=== PATIENT | male | born 1965 | race Hispanic/Latino ===

== ENCOUNTER 2017-11-29 10:18 | Emergency (ER) | payer BC ==
[2017-11-29 10:39] VITALS: BMI 26.4
[2017-11-29] MEDS ORDERED: DiphenhydrAMINE 50 mg/ml Inj IM STA (10:43)
--- NOTE | 2017-11-29 10:47 | ED PDOC ---
Arrival/HPI - General Chief Complaint: Allergic Reaction Time Seen by Provider: 11/29/17 10:43 Historian: Patient - History of Present Illness Narrative History of Present Illness (Text): 11/29/17 10:46 52yo male with no pmhx present with complaint of hives x 4days while at [facility]. States he was seen in ED at [facility] and was treated with Solu medrol and Benadryl. States he was discharged home with 7days worth of prednisone and Benadryl. States he started the Prednisone yesterday. He took the Benadryl last night. States he came to ED because he is still having some hives on his RLL and waist area. States the hives and lip swelling increased significantly. Denies tongue swelling, drooling, any new lotion/medication.food/detergent, any other inciting factors. Past Medical History - Provider Review Nursing Documentation Reviewed: Yes - Infectious Disease Hx of Infectious Diseases: None - Cardiac Hx Pacemaker: No - Pulmonary Hx Asthma: No - Neurological Hx Paralysis: No - HEENT Hx Difficulty Chewing: No - Hematological/Oncological Hx Blood Transfusions: No Hx Blood Transfusion Reaction: No - Musculoskeletal/Rheumatological Hx Musculoskeletal Disorders: No - Psychiatric Hx Emotional Abuse: No Hx Physical Abuse: No Hx Substance Use: No - Surgical History Hx Amputation: No - Anesthesia Hx Anesthesia: Yes Hx Anesthesia Reactions: No Hx Malignant Hyperthermia: No - Suicidal Assessment Feels Threatened In Home Enviroment: No Family/Social History - Physician Review Nursing Documentation Reviewed: Yes Family/Social History: Unknown Family HX Smoking Status: Never Smoked Hx Alcohol Use: Yes ([employer]) Hx Substance Use: No Allergies/Home Meds Allergies/Adverse Reactions: Allergies Penicillins Allergy (Verified 11/29/17 10:31) RASH iv contrast Allergy (Uncoded 11/29/17 10:31) RASH Home Medications: Home Meds Medication Instructions Recorded Confirmed DiphenhydrAMINE [Benadryl] 1 cap PO PRN PRN 11/29/17 11/29/17 Prednisone [Prednisone] 1 tab PO DAILY 11/29/17 11/29/17 Review of Systems - Physician Review All systems were reviewed & negative as marked: Yes - Review of Systems Constitutional: Normal Eyes: Normal ENT: Normal Respiratory: Normal Cardiovascular: Normal Gastrointestinal: Normal Genitourinary Male: Normal Musculoskeletal: Normal Skin: Rash, Pruritis Neurological: Normal Endocrine: Normal Hemo/Lymphatic: Normal Psychiatric: Normal Physical Exam Vital Signs Reviewed: Yes Temperature: Afebrile Blood Pressure: Normal Pulse: Regular Respiratory Rate: Normal Appearance: Positive for: Well-Appearing, Non-Toxic, Comfortable Pain Distress: None Mental Status: Positive for: Alert and Oriented X 3 - Systems Exam Head: Present: Atraumatic, Normocephalic Pupils: Present: PERRL Extroacular Muscles: Present: EOMI Conjunctiva: Present: Normal Mouth: Present: Moist Mucous Membranes, Normal Lips (Very mild right upper lip swelling) Neck: Present: Normal Range of Motion Respiratory/Chest: Present: Clear to Auscultation, Good Air Exchange. No: Respiratory Distress, Accessory Muscle Use Cardiovascular: Present: Regular Rate and Rhythm, Normal S1, S2. No: Murmurs Abdomen: No: Tenderness, Distention, Peritoneal Signs Back: Present: Normal Inspection Upper Extremity: Present: Normal Inspection. No: Cyanosis, Edema Lower Extremity: Present: Normal Inspection. No: Edema Neurological: Present: GCS=15, CN II-XII Intact, Speech Normal Skin: Present: Warm, Dry, Rashes (Hives to right lower leg), Normal Color Psychiatric: Present: Alert, Oriented x 3, Normal Insight, Normal Concentration Medical Decision Making ED Course and Treatment: 11/29/17 13:39 PT presented for stated history. He was not in any distress. He already took Prednisone and has been on prednisone for 2days. He was given Benadryl and Pepcid in ED. His rash improved in ED. Called Dr. Cook office and scheduled appointment for pt on 12/06 at 0500pm. Plan was DW the pt and he expressed understanding. - Medication Orders Current Medication Orders: Discontinued Medications Diphenhydramine HCl (Benadryl) 25 mg IM STAT STA Stop: 11/29/17 10:44 Last Admin: 11/29/17 10:58 Dose: 25 mg IM Administration Charges Document 11/29/17 10:58 CRISTAL (Rec: 11/29/17 10:58 CRISTAL [id number]) Injection Site MAR Injection Site Left Deltoid Charges for Administration # of IM Administrations 1 Famotidine (Pepcid) 20 mg PO STAT STA Stop: 11/29/17 10:44 Last Admin: 11/29/17 10:58 Dose: 20 mg Disposition/Present on Arrival - Present on Arrival Any Indicators Present on Arrival: No History of DVT/PE: No History of Uncontrolled Diabetes: No Urinary Catheter: No History of Decub. Ulcer: No History Surgical Site Infection Following: None - Disposition Have Diagnosis and Disposition been Completed?: Yes Diagnosis: Allergic reaction Disposition: HOME/ ROUTINE Disposition Time: 10:50 Patient Plan: Discharge Patient Problems: Current Active Problems Problem Status Onset Allergic reaction Acute Condition: STABLE Discharge Instructions (ExitCare): Hives Additional Instructions: Follow up with Rn Advice, Dr. Hopkins on December 06 at 5:00pm Continue with your medication as directed Return to ED for any new or worsening symptoms Prescriptions: Famotidine [Pepcid] 20 mg PO DAILY #15 tab Referrals: Fabian Yuen MD [Primary Care Provider] - Follow up with primary Fausto Hopkins MD [Staff Provider] - Follow up with primary Forms: [employer] ([place])
[2017-11-29 11:08] VITALS: BP 107/79; PULSE 79; RESP 16; TEMP 98.3; O2SAT 99
== END 2017-11-29 11:06 | disposition home or self-care (01) ==
LOC: ED 10:18
DX: T78.40XA Allergy, unspecified, initial encounter (principal)
CPT/HCPCS: 96372; 99281; J1200